=== PATIENT | female | born 1995 | race Caucasian/White ===

== ENCOUNTER 2021-06-16 11:59 | Outpatient (CLI) | payer SELFPAY ==
[2021-06-16 13:58] LABS: Thyroid Stim Hormone (TSH) 2.37 uIU/mL (0.358-3.74)
[2021-06-16 14:02] LABS: Hepatitis B Surface Antibody Non-Reactive; Progesterone Level 18.82 ng/mL (See Comment); Rubella IgG Non-Reactive (Nonreactive)
[2021-06-18 18:40] LABS: V-Zoster IgG (Immunity) 2625 index (Immune >165)
[2021-06-22 20:33] LABS: HPV Reflexed? NOT INDICATED
== END 2021-06-16 23:59 | disposition home or self-care (01) ==
LOC: WOBLAB 12:01
PROVIDERS: Visit Provider Student in an Organized Health Care Education/Training Program
DX: Z12.4 Encounter for screening for malignant neoplasm of cervix (principal); N97.9 Female infertility, unspecified
CPT/HCPCS: 36415; 84144; 84443; 86706; 86762; 86787; 86900; 86901; 88175; G0145

== ENCOUNTER → 2021-07-21 | Outpatient (CLI) | payer SELFPAY ==
[2021-07-21 12:59] LABS: Estradiol 47.7 pg/mL; Follicle Stimulating Hormone 6.2 mIU/mL; Luteinizing Hormone 2.3 mIU/mL
== END | disposition home or self-care (01) ==
LOC: WOBLAB 11:05
PROVIDERS: Visit Provider Student in an Organized Health Care Education/Training Program
DX: N97.9 Female infertility, unspecified (principal)
CPT/HCPCS: 36415; 82670; 83001; 83002